=== PATIENT | male | born 1990 | race Caucasian/White ===

== ENCOUNTER 2016-05-21 12:24 | Emergency (ER) | payer OTHER ==
[2016-05-21 12:40] VITALS: BP 129/58; PULSE 68; TEMP 98.3; BMI 31.4
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
== END 2016-05-21 13:59 | disposition home or self-care (01) ==
LOC: EDMC 12:24
DX: S16.1XXA Strain of muscle, fascia and tendon at neck level, initial encounter (principal); S39.012A Strain of muscle, fascia and tendon of lower back, initial encounter; S63.502A Unspecified sprain of left wrist, initial encounter; S63.92XA Sprain of unspecified part of left wrist and hand, initial encounter; V49.40XA Driver injured in collision with unspecified motor vehicles in traffic accident, initial encounter; Y93.9 Activity, unspecified; Y92.410 Unspecified street and highway as the place of occurrence of the external cause
CPT/HCPCS: 70450; 72110; 72125; 99282